=== PATIENT | male | born 1945 | race Hispanic/Latino ===

== ENCOUNTER → 2017-06-13 | Outpatient (CLI) | payer MEDICARE, BC ==
[~2017-06-13] MED LIST: CAVEDILOL PO; COLACE100 M1 PO; DOXAZOSIN MESYLA4 MG PO; GADOBENATE DIMEGLUMINE 1 ML IV ONE; HYDROCODONE/APAP; LOSARTAN/HCTZ PO; NORCO 10MG-325MG1 EA PO; PRAZOSIN
[2017-06-13 11:09] LABS: BLOOD UREA NITROGEN 18 mg/dL (7-26); BUN/CREATININE RATIO 18 (6-25); CREATININE, SERUM 1.02 mg/dL (0.72-1.25); EST GLOMERULAR FILTRATION RATE > 60 ML/MIN (60-)
--- NOTE | 2017-06-13 13:37 | Diagnostic Imaging Report ---
PROCEDURE: MRI ABDOMEN WOW TECHNIQUE: Axial T1 in and out of phase, axial T2, fat-sat, coronal, T2 with and without fat-sat, axial DWI, and ADC MR images of the abdomen were performed, before the intravenous administration of gadolinium contrast. Axial T1, GRE dynamic images in precontrast, arterial, venous and delayed phases, as well as delayed postcontrast ASSETT images were also performed. Subtraction images were obtained. 20 cc of MultiHance was administered. COMPARISON: MRI 02/20/2017 INDICATIONS: Not provided. FINDINGS: LOWER THORAX: Lung bases are grossly clear. LIVER: Normal hepatic size and contour. Diffusely signal loss on [id number] images consistent with steatosis. No focal hepatic lesions. No biliary ductal dilation. BILIARY: No ductal dilatation or filling defect. Gallbladder without filling defects. PANCREAS: No mass or ductal dilatation. SPLEEN: No splenomegaly. ADRENALS: No nodules. KIDNEYS: Symmetrical bilateral renal enhancement. No hydronephrosis or obstruction. Stable postsurgical changes surrounding the kidneys, posterior pararenal spaces, and subcutaneous tissues. Bilateral cystic renal lesions as follows: * Left inferior pole (series 5 image 62) exophytic T1 mildly hyperintense/T2 hyperintense cyst measuring 2.2 x 1.8 cm (previously 1.8 x 1.4 cm). Likely a proteinaceous or hemorrhagic cyst. * Left interpolar region (subtraction series 100 image 173) cystic lesion with mildly thickened septation and septal enhancement measures 1.8 x 1.3 cm (previously 1.7 x 1.4 cm). * Right superior pole (subtraction series 100 image 165) cystic lesion with mildly thickened septation showing septal enhancement measures 1.3 x 1.3 cm (previously 1.4 x 1.3 cm). * Stable multiple bilateral subcentimeter T2 hyperintense, T1 hypointense, nonenhancing lesions, likely simple cysts. PERITONEUM / RETROPERITONEUM: No upper abdominal free fluid. LYMPH NODES: No upper abdominal lymphadenopathy. VESSELS: Celiac trunk, superior and inferior mesenteric, and renal arteries are patent. Portal, superior mesenteric, and splenic veins are patent. Circumaortic left renal vein. BONES AND SOFT TISSUES: No acute bony abnormalities. No suspicious marrow signal abnormalities. Stable T11 and L2 hemangiomas. IMPRESSION: Stable cystic lesions in both kidneys which show septal enhancement and are suspicious for cystic renal cell carcinoma. No new masses. Dictated by: Kenny Kilpatrick M.D. on 06/13/2017 at 13:37 Electronically approved by: Kenny Kilpatrick M.D. on 06/13/2017 at 13:37
== END ==
LOC: MRI 10:04
PROVIDERS: ATTEND Urology
DX: C64.9 Malignant neoplasm of unspecified kidney, except renal pelvis (principal)
CPT/HCPCS: 36415; 74183; 82565; 84520

== ENCOUNTER → 2018-08-19 | Outpatient (CLI) | payer MEDICARE, BC ==
[2018-08-19 09:09] LABS: BLOOD UREA NITROGEN 26 mg/dL (7-26); BUN/CREATININE RATIO 23 (6-25); CREATININE, SERUM 1.11 mg/dL (0.72-1.25); EST GLOMERULAR FILTRATION RATE > 60 ML/MIN (60-)
--- NOTE | 2018-08-19 16:42 | Diagnostic Imaging Report ---
EXAM: MR Abdomen WITHOUT and WITH Contrast INDICATION: Malignant neoplasm of kidney. Follow-up. COMPARISON: MR abdomen dated 06/13/2017. TECHNIQUE: Multiplanar and multisequence imaging was performed of the abdomen without and with contrast. T1-weighted, T2-weighted images, T1-weighted in and [id number], and Diffusion weighted images. Dynamic, post gadolinium T1-weighted spoiled gradient echo scans. IV Contrast: 18 mL of MultiHance gadolinium Oral Contrast: None Medications: None COMPLICATIONS: None FINDINGS: LOWER THORAX: Unremarkable. HEPATOBILIARY: No focal hepatic lesions. No biliary ductal dilation. GALLBLADDER: No radio-opaque stones or sludge. No wall thickening. SPLEEN: No splenomegaly. PANCREAS: No focal masses or ductal dilatation. ADRENALS: No adrenal nodules KIDNEYS/URETERS: Redemonstration of post surgical changes with blooming artifacts around bilateral kidneys and overlying subcutaneous tissues posteriorly. Kidneys enhance symmetrically. No hydronephrosis. No Redemonstration of T2 hyperintense nonenhancing lesions in the bilateral kidneys, the largest in the lower pole of the left kidney measuring 2.9 cm on image 125 series 100, previously 2.4 cm. Slight interval increase in size of the previously described complex lesion in the posterior interpolar region of the left kidney which previously measured 2.0 cm and currently measures 2.2 cm on image 114 series 100. GI TRACT: No abnormal distention, wall thickening, or evidence of bowel obstruction. LYMPH NODES: No lymphadenopathy. VESSELS: Retrosternal left renal vein again observed. PERITONEUM / RETROPERITONEUM: No free air or fluid. BONES: Unremarkable. SOFT TISSUES: Unremarkable. IMPRESSION: Slight interval increase in size of a mildly complex lesion in the posterior interpolar region of the left kidney, otherwise the stent can't change.
== END ==
LOC: MRI 07:48
PROVIDERS: ATTEND Urology
DX: C64.9 Malignant neoplasm of unspecified kidney, except renal pelvis (principal)
CPT/HCPCS: 36415; 74183; 82565; 84520; A9577

== ENCOUNTER → 2019-06-04 | Outpatient (CLI) | payer MEDICARE, BC ==
[~2019-06-04] MED LIST changes: -GADOBENATE DIMEGLUMINE 1 ML IV ONE; +IOPAMIDOL 370 MG/ML 200 ML INFUS..BTL INJ ONE; +SODIUM CHLORIDE 0.9% 500ML 500 ML ONE; +SODIUM CHLORIDE 0.9% 50ML 50 ML ONE
[2019-06-04 10:02] LABS: CREATININE, SERUM 1.22 mg/dL (0.72-1.25)
--- NOTE | 2019-06-04 11:51 | Diagnostic Imaging Report ---
EXAM: CT Abdomen and Pelvis WITH intravenous contrast - renal mass protocol INDICATION: Renal malignancy COMPARISON: None. TECHNIQUE: Abdomen and pelvis were scanned utilizing a multidetector helical scanner from the lung base to the pubic symphysis before and after administration of IV contrast. Coronal and sagittal reformations were obtained. Renal mass protocol was used. Scan was performed prior to contrast administration and during arterial, venous, and delayed phases. IV CONTRAST: 100 mL of Isovue 370 ORAL CONTRAST: Water COMPLICATIONS: None RADIATION DOSE: Total DLP: 1606 mGy*cm Dose modulation, iterative reconstruction, and/or weight based adjustment of the mA/kV was utilized to reduce the radiation dose to as low as reasonably achievable. FINDINGS: LOWER THORAX: Atherosclerotic coronary artery calcifications. HEPATOBILIARY: No focal hepatic lesions. No biliary ductal dilatation. The gallbladder appears unremarkable. SPLEEN: No splenomegaly. Scattered subcentimeter calcified granulomas throughout the spleen. PANCREAS: No focal masses or ductal dilatation. ADRENALS: Diffuse bilateral adrenal thickening without discrete nodule. KIDNEYS/URETERS: Postoperative findings of right and left partial nephrectomy. There is a 2.5 x 2.4 cm ill-defined mass at the posterior midpole of the left kidney. The mass does not demonstrate avid arterial enhancement relative to adjacent renal parenchyma. Left lower pole cysts measure up to 3.2 cm. Scattered cysts throughout the right kidney measure up to 1.4 cm. PELVIC ORGANS/BLADDER: Prostatomegaly to 5.7 cm with indentation of the posterior bladder. PERITONEUM / RETROPERITONEUM: No free air or fluid. LYMPH NODES: No lymphadenopathy. VESSELS: Moderate scattered atherosclerotic calcifications of the nonaneurysmal abdominal aorta and major branches. GI TRACT: Diverticulosis without CT evidence of diverticulitis. No abnormal bowel thickening. No bowel obstruction. Normal appendix. BONES AND SOFT TISSUES: No acute osseous injury. No suspicious lytic or blastic lesions. IMPRESSION: Status post right and left partial nephrectomy. 2.5 x 2.4 cm ill-defined mass at the posterior midpole the left kidney does not demonstrate avid arterial enhancement relative to adjacent renal parenchyma. This may represent a hypoenhancing renal cell carcinoma versus an oncocytoma. Bilateral renal cysts as above. Prostatomegaly. Diverticulosis without CT evidence of diverticulitis. Signed by: Tacos Rosales MD on 06/04/2019 11:47 AM
== END ==
LOC: CT 08:54
PROVIDERS: ATTEND Urology
DX: C64.9 Malignant neoplasm of unspecified kidney, except renal pelvis (principal)
CPT/HCPCS: 36415; 74178; 82565; 84520; 96360; J7040; Q9967

== ENCOUNTER → 2020-05-05 | Outpatient (CLI) | payer MEDICARE, BC ==
[~2020-05-05] MED LIST changes: -IOPAMIDOL 370 MG/ML 200 ML INFUS..BTL INJ ONE; -SODIUM CHLORIDE 0.9% 500ML 500 ML ONE; -SODIUM CHLORIDE 0.9% 50ML 50 ML ONE
== END ==
LOC: US 14:02
PROVIDERS: ATTEND Urology
DX: C64.9 Malignant neoplasm of unspecified kidney, except renal pelvis (principal); N40.1 Benign prostatic hyperplasia with lower urinary tract symptoms; R39.14 Feeling of incomplete bladder emptying; R81 Glycosuria
CPT/HCPCS: 76770

== ENCOUNTER 2020-05-26 08:55 | Inpatient (IN) | payer MEDICARE, BC ==
[2020-05-23 09:26] LABS: BASOPHILS # (AUTO) 0.1 (0.0-0.1); BASOPHILS % 0.9 % (0.0-1.0); EOSINOPHILS # (AUTO) 0.1 (0.0-0.4); EOSINOPHILS % 1.1 % (0.0-6.0); HEMATOCRIT 40.6 % (38.2-49.6); HEMOGLOBIN 13.6 g/dL (14.0-18.0); LYMPHOCYTES # (AUTO) 1.6 (1.0-3.2); LYMPHOCYTES % 17.8 % (18.0-39.1); MEAN CORPUSCULAR HGB CONC 33.5 g/dL (31-35); MEAN CORPUSCULAR VOLUME 83.5 fL (81-99); MONOCYTES # (AUTO) 0.8 (0.2-0.8); MONOCYTES % 8.6 % (4.4-11.3); NEUTROPHILS # (AUTO) 6.2 (2.1-6.9); NEUTROPHILS % 70.9 % (38.7-80.0); PLATELET COUNT 228 x10e3/uL (140-360); RED BLOOD COUNT 4.86 x10e6/uL (4.3-5.7); RED CELL DISTRIBUTION WIDTH 13.6 % (11.7-14.4)
[2020-05-23 10:08] LABS: ANION GAP 13.5 mmol/L (8-16); CALCIUM 9.1 mg/dL (8.4-10.2); CREATININE, SERUM 1.18 mg/dL (0.72-1.25); POTASSIUM 3.5 mmol/L (3.5-5.1)
[~2020-05-26] VITALS: Ht 172.7 cm; Wt 88.0 kg
[~2020-05-26 08:55] MED LIST changes: +ATORVASTATIN CA20 MG PO; +AVODART0.5 MG PO; +CARVEDILOL12.5 MG PO; +EDARBYCLOR 40-1 EAC1 PO; +HYDRALAZINE HCL25 MG PO; +HYDROCHLOROTHIA25 MG PO; +METFORMIN HCL500 MG PO; +OXYBUTYNIN CHLOR5 MG PO
[2020-05-26] MEDS ORDERED: PIPERACILLIN/TAZOBAC 3.375 GM VIAL ONE (10:24)
[2020-05-26] MEDS ORDERED: SODIUM CHLORIDE 0.45% 1,000 ML ONE (10:24)
[2020-05-26] MEDS ORDERED: SODIUM CHLORIDE 0.9% 50ML 50 ML ONE (10:24)
[2020-05-26] MEDS ORDERED: GENTAMICIN 80MG/NS 100 ML 200 ML IV ONE (10:25)
[2020-05-26] MEDS ORDERED: B&O 60MG R/S 60 MG SUPP PR ONE (12:18)
[2020-05-26] MEDS ORDERED: IOPAMIDOL 300MG/ML 50ML INFUS..BTL IV ONE (12:18)
[2020-05-26] MEDS ORDERED: SEVOFLURANE INHAL SOLN 250 ML PEN BTL ONE (13:32)
[2020-05-26] MEDS ORDERED: ETOMIDATE 2 MG/ML 10 ML INJ IV ONE (13:32)
[2020-05-26] MEDS ORDERED: DIPHENHYDRAMINE HCL 25 MG CAP PO PRN (14:15)
[2020-05-26] MEDS ORDERED: B&O 60MG R/S 60 MG SUPP PR PRN (14:15)
[2020-05-26] MEDS ORDERED: CEFTRIAXONE SOD 1 GM/50 ML BAG IV SCH (14:15)
[2020-05-26] MEDS ORDERED: ONDANSETRON HCL INJ 2MG/ML 2ML 2 MG/ML VIAL IV PRN (14:15)
[2020-05-26] MEDS ORDERED: FENTANYL CITRATE/PF 100MCG/2 ML INJ ONE (14:38)
[2020-05-26 15:11] LABS: BASOPHILS # (AUTO) 0.1 (0.0-0.1); BASOPHILS % 0.6 % (0.0-1.0); EOSINOPHILS # (AUTO) 0.1 (0.0-0.4); EOSINOPHILS % 0.6 % (0.0-6.0); HEMATOCRIT 41.6 % (38.2-49.6); LYMPHOCYTES # (AUTO) 1.4 (1.0-3.2); MEAN CORPUSCULAR HEMOGLOBIN 28.1 pg (28-32); MEAN CORPUSCULAR HGB CONC 33.7 g/dL (31-35); MEAN CORPUSCULAR VOLUME 83.4 fL (81-99); MONOCYTES # (AUTO) 0.6 (0.2-0.8); MONOCYTES % 7.2 % (4.4-11.3); NEUTROPHILS # (AUTO) 5.8 (2.1-6.9); PLATELET COUNT 203 x10e3/uL (140-360); RED BLOOD COUNT 4.99 x10e6/uL (4.3-5.7); RED CELL DISTRIBUTION WIDTH 13.7 % (11.7-14.4)
[2020-05-26 15:42] LABS: ANION GAP 16.4 mmol/L (8-16); CALCIUM 8.8 mg/dL (8.4-10.2); CREATININE, SERUM 1.25 mg/dL (0.72-1.25); POTASSIUM 3.4 mmol/L (3.5-5.1)
[2020-05-26 16:06] VITALS: BP 166/77
[2020-05-26 16:12] VITALS: BP 166/77
[2020-05-26 16:34] VITALS: BP 166/77
[2020-05-26] MEDS: SODIUM CHLORIDE 0.9% 1000ML 1,000 ML IV SCH (16:34)
[2020-05-26] MEDS: CEFTRIAXONE SOD 1 GM in SODIUM CHLORIDE 0.9% 50ML 50 ML IV SCH (17:47)
[2020-05-26] MEDS: DOCUSATE SODIUM 100 MG CAP PO SCH (17:47)
[2020-05-26 20:00] VITALS: BP 168/73
[2020-05-26] MEDS: ATORVASTATIN 40 MG TAB PO SCH (21:00)
[2020-05-26] MEDS: HYDRALAZINE HCL 25 MG TAB PO SCH (21:00)
[2020-05-27] VITALS (7 sets, daily range): BP systolic 142–156; BP diastolic 70–83
[2020-05-27] MEDS: SODIUM CHLORIDE 0.9% 1000ML 1,000 ML IV SCH (05:30)
[2020-05-27 06:56] LABS: BASOPHILS # (AUTO) 0.1 (0.0-0.1); BASOPHILS % 0.6 % (0.0-1.0); EOSINOPHILS # (AUTO) 0.1 (0.0-0.4); EOSINOPHILS % 1.1 % (0.0-6.0); HEMATOCRIT 41.3 % (38.2-49.6); HEMOGLOBIN 13.9 g/dL (14.0-18.0); LYMPHOCYTES # (AUTO) 1.2 (1.0-3.2); LYMPHOCYTES % 11.4 % (18.0-39.1); MEAN CORPUSCULAR HEMOGLOBIN 28.4 pg (28-32); MEAN CORPUSCULAR HGB CONC 33.7 g/dL (31-35); MEAN CORPUSCULAR VOLUME 84.5 fL (81-99); NEUTROPHILS % 76.5 % (38.7-80.0); PLATELET COUNT 214 x10e3/uL (140-360); RED BLOOD COUNT 4.89 x10e6/uL (4.3-5.7); RED CELL DISTRIBUTION WIDTH 13.7 % (11.7-14.4)
[2020-05-27 07:22] LABS: ALBUMIN 3.2 g/dL (3.5-5.0); ALBUMIN/GLOBULIN RATIO 0.9 (0.8-2.0); ANION GAP 16.9 mmol/L (8-16); CALCIUM 8.6 mg/dL (8.4-10.2); CREATININE, SERUM 1.19 mg/dL (0.72-1.25)
[2020-05-27 07:23] LABS: POTASSIUM 2.9 mmol/L (3.5-5.1)
[2020-05-27] MEDS ORDERED: POTASSIUM CHLORIDE 20 MEQ TAB CR PO SCH (08:27)
[2020-05-27] MEDS: DOCUSATE SODIUM 100 MG CAP PO SCH ×2 (09:03→16:38)
[2020-05-27] MEDS: HYDRALAZINE HCL 25 MG TAB PO SCH ×3 (09:04→20:31)
[2020-05-27] MEDS: CARVEDILOL 12.5 MG TAB PO SCH ×2 (10:06→16:38)
[2020-05-27] MEDS: SOD CHL 0.45%/POT CHL 20MEQ 1,000 ML IV SCH ×2 (10:06→22:56)
[2020-05-27] MEDS ORDERED: POTASSIUM CHLORIDE 20 MEQ TAB CR PO NR (15:00)
[2020-05-27] MEDS: CEFTRIAXONE SOD 1 GM in SODIUM CHLORIDE 0.9% 50ML 50 ML IV SCH (16:38)
[2020-05-27] MEDS: ATORVASTATIN 40 MG TAB PO SCH (20:04)
[2020-05-28] VITALS (7 sets, daily range): BP systolic 134–168; BP diastolic 74–87
[2020-05-28 06:27] LABS: BASOPHILS # (AUTO) 0.1 (0.0-0.1); BASOPHILS % 0.6 % (0.0-1.0); EOSINOPHILS # (AUTO) 0.2 (0.0-0.4); EOSINOPHILS % 1.9 % (0.0-6.0); HEMATOCRIT 41.1 % (38.2-49.6); HEMOGLOBIN 14.1 g/dL (14.0-18.0); LYMPHOCYTES # (AUTO) 1.2 (1.0-3.2); LYMPHOCYTES % 10.7 % (18.0-39.1); MEAN CORPUSCULAR HEMOGLOBIN 28.3 pg (28-32); MEAN CORPUSCULAR HGB CONC 34.3 g/dL (31-35); MEAN CORPUSCULAR VOLUME 82.5 fL (81-99); MONOCYTES # (AUTO) 1.1 (0.2-0.8); MONOCYTES % 10.2 % (4.4-11.3); NEUTROPHILS # (AUTO) 8.3 (2.1-6.9); PLATELET COUNT 220 x10e3/uL (140-360); RED BLOOD COUNT 4.98 x10e6/uL (4.3-5.7); RED CELL DISTRIBUTION WIDTH 13.7 % (11.7-14.4)
[2020-05-28 07:00] LABS: ANION GAP 12.2 mmol/L (8-16); BLOOD UREA NITROGEN 18 mg/dL (7-26); BUN/CREATININE RATIO 18 (6-25); CALCIUM 8.5 mg/dL (8.4-10.2); CARBON DIOXIDE 25 mmol/L (22-29); CHLORIDE 100 mmol/L (98-107); CREATININE, SERUM 0.99 mg/dL (0.72-1.25); EST GLOMERULAR FILTRATION RATE > 60 ML/MIN (60-); GLUCOSE 155 mg/dL (74-118); POTASSIUM 3.2 mmol/L (3.5-5.1); SODIUM 134 mmol/L (136-145)
[2020-05-28] MEDS: DOCUSATE SODIUM 100 MG CAP PO SCH ×2 (08:36→16:17)
[2020-05-28] MEDS: HYDRALAZINE HCL 25 MG TAB PO SCH ×3 (08:36→22:20)
[2020-05-28] MEDS: CARVEDILOL 12.5 MG TAB PO SCH ×2 (08:36→16:42)
[2020-05-28] MEDS ORDERED: POTASSIUM CHLORIDE 20 MEQ TAB CR PO NR (11:00)
[2020-05-28] MEDS: SOD CHL 0.45%/POT CHL 20MEQ 1,000 ML IV SCH (15:55)
[2020-05-28] MEDS: CEFTRIAXONE SOD 1 GM in SODIUM CHLORIDE 0.9% 50ML 50 ML IV SCH (17:34)
[2020-05-28] MEDS: ATORVASTATIN 40 MG TAB PO SCH (22:20)
[2020-05-29] VITALS (8 sets, daily range): BP systolic 145–174; BP diastolic 75–87
[2020-05-29 05:30] LABS: BASOPHILS # (AUTO) 0.1 (0.0-0.1); BASOPHILS % 0.5 % (0.0-1.0); EOSINOPHILS # (AUTO) 0.3 (0.0-0.4); HEMATOCRIT 40.9 % (38.2-49.6); HEMOGLOBIN 14.1 g/dL (14.0-18.0); LYMPHOCYTES # (AUTO) 1.2 (1.0-3.2); LYMPHOCYTES % 11.2 % (18.0-39.1); MEAN CORPUSCULAR HEMOGLOBIN 28.8 pg (28-32); MEAN CORPUSCULAR HGB CONC 34.5 g/dL (31-35); MEAN CORPUSCULAR VOLUME 83.6 fL (81-99); MONOCYTES # (AUTO) 1.1 (0.2-0.8); NEUTROPHILS # (AUTO) 8.2 (2.1-6.9); NEUTROPHILS % 74.6 % (38.7-80.0); PLATELET COUNT 222 x10e3/uL (140-360); RED BLOOD COUNT 4.89 x10e6/uL (4.3-5.7); RED CELL DISTRIBUTION WIDTH 13.9 % (11.7-14.4)
[2020-05-29 05:47] LABS: ANION GAP 13.4 mmol/L (8-16); BLOOD UREA NITROGEN 21 mg/dL (7-26); BUN/CREATININE RATIO 20 (6-25); CALCIUM 8.3 mg/dL (8.4-10.2); CARBON DIOXIDE 26 mmol/L (22-29); CHLORIDE 99 mmol/L (98-107); CREATININE, SERUM 1.07 mg/dL (0.72-1.25); EST GLOMERULAR FILTRATION RATE > 60 ML/MIN (60-); GLUCOSE 153 mg/dL (74-118); POTASSIUM 3.4 mmol/L (3.5-5.1); SODIUM 135 mmol/L (136-145)
[2020-05-29] MEDS: SOD CHL 0.45%/POT CHL 20MEQ 1,000 ML IV SCH ×2 (06:10→15:05)
[2020-05-29] MEDS: HYDRALAZINE HCL 25 MG TAB PO SCH ×3 (09:00→21:30)
[2020-05-29] MEDS: DOCUSATE SODIUM 100 MG CAP PO SCH ×2 (09:00→21:30)
[2020-05-29] MEDS: CARVEDILOL 12.5 MG TAB PO SCH ×2 (09:39→22:05)
[2020-05-29] MEDS ORDERED: ONDANSETRON HCL 4 MG ORAL DISINTEGRATING TAB PO PRN (10:00)
[2020-05-29] MEDS: PHENAZOPYRIDINE HCL 100 MG TAB PO PRN ×2 (16:19→22:06)
[2020-05-29] MEDS: CEFTRIAXONE SOD 1 GM in SODIUM CHLORIDE 0.9% 50ML 50 ML IV SCH (18:01)
[2020-05-29] MEDS: TRAMADOL HCL 50 MG TAB PO PRN (21:30)
[2020-05-29] MEDS: ATORVASTATIN 40 MG TAB PO SCH (22:06)
[2020-05-30] VITALS (7 sets, daily range): BP systolic 160–188; BP diastolic 78–94
[2020-05-30 05:51] LABS: BASOPHILS # (AUTO) 0.1 (0.0-0.1); BASOPHILS % 0.8 % (0.0-1.0); EOSINOPHILS # (AUTO) 0.4 (0.0-0.4); EOSINOPHILS % 3.7 % (0.0-6.0); HEMATOCRIT 39.5 % (38.2-49.6); HEMOGLOBIN 13.8 g/dL (14.0-18.0); LYMPHOCYTES # (AUTO) 1.6 (1.0-3.2); LYMPHOCYTES % 16.9 % (18.0-39.1); MEAN CORPUSCULAR HEMOGLOBIN 29.7 pg (28-32); MEAN CORPUSCULAR HGB CONC 34.9 g/dL (31-35); MEAN CORPUSCULAR VOLUME 85.1 fL (81-99); MONOCYTES # (AUTO) 1.2 (0.2-0.8); MONOCYTES % 12.6 % (4.4-11.3); NEUTROPHILS # (AUTO) 6.2 (2.1-6.9); NEUTROPHILS % 65.4 % (38.7-80.0); PLATELET COUNT 214 x10e3/uL (140-360); RED BLOOD COUNT 4.64 x10e6/uL (4.3-5.7); RED CELL DISTRIBUTION WIDTH 14.3 % (11.7-14.4)
[2020-05-30 06:26] LABS: ANION GAP 12.4 mmol/L (8-16); BLOOD UREA NITROGEN 19 mg/dL (7-26); BUN/CREATININE RATIO 18 (6-25); CALCIUM 8.2 mg/dL (8.4-10.2); CARBON DIOXIDE 26 mmol/L (22-29); CHLORIDE 99 mmol/L (98-107); CREATININE, SERUM 1.03 mg/dL (0.72-1.25); EST GLOMERULAR FILTRATION RATE > 60 ML/MIN (60-); GLUCOSE 149 mg/dL (74-118); POTASSIUM 3.4 mmol/L (3.5-5.1); SODIUM 134 mmol/L (136-145)
[2020-05-30] MEDS: SOD CHL 0.45%/POT CHL 20MEQ 1,000 ML IV SCH ×2 (06:46→18:10)
[2020-05-30] MEDS: DOCUSATE SODIUM 100 MG CAP PO SCH (09:16)
[2020-05-30] MEDS: HYDRALAZINE HCL 25 MG TAB PO SCH ×2 (09:16→16:19)
[2020-05-30] MEDS: CARVEDILOL 12.5 MG TAB PO SCH (09:17)
[2020-05-30] MEDS: PHENAZOPYRIDINE HCL 100 MG TAB PO PRN ×2 (13:33→19:39)
[2020-05-30] MEDS: TRAMADOL HCL 50 MG TAB PO PRN ×2 (13:34→19:39)
[2020-05-30] MEDS: CEFTRIAXONE SOD 1 GM in SODIUM CHLORIDE 0.9% 50ML 50 ML IV SCH (18:18)
== END 2020-05-30 19:57 | disposition home or self-care (01) | DRG 713 ==
LOC: OR 08:55 → PACU V 14:15 → MED/SURG 15:16
PROVIDERS: ADMIT Family Medicine; ATTEND Family Medicine
PROC: 0VB08ZX Excision of Prostate, Via Natural or Artificial Opening Endoscopic, Diagnostic (ICD-10-PCS; 2020-05-26)
PROC: BT141ZZ Fluoroscopy of Kidneys, Ureters and Bladder using Low Osmolar Contrast (ICD-10-PCS; 2020-05-26)
PROC: BV49ZZZ Ultrasonography of Prostate and Seminal Vesicles (ICD-10-PCS; principal; 2020-05-26 12:00)
PROC: 0V508ZZ Destruction of Prostate, Via Natural or Artificial Opening Endoscopic (ICD-10-PCS; 2020-05-26 12:00)
DX: N40.1 Benign prostatic hyperplasia with lower urinary tract symptoms (principal); N13.8 Other obstructive and reflux uropathy; R39.14 Feeling of incomplete bladder emptying; I10 Essential (primary) hypertension; E11.9 Type 2 diabetes mellitus without complications; I25.10 Atherosclerotic heart disease of native coronary artery without angina pectoris; I35.0 Nonrheumatic aortic (valve) stenosis; Z79.84 Long term (current) use of oral hypoglycemic drugs; Z83.3 Family history of diabetes mellitus; Z82.49 Family history of ischemic heart disease and other diseases of the circulatory system; E78.5 Hyperlipidemia, unspecified; Z85.528 Personal history of other malignant neoplasm of kidney; Z90.5 Acquired absence of kidney; E66.9 Obesity, unspecified; Z68.29 Body mass index [BMI] 29.0-29.9, adult; Z20.822 Contact with and (suspected) exposure to COVID-19
CPT/HCPCS: 36415; 51700; 71046; 74420; 76872; 76998; 80048; 80053; 82948; 83735; 85025; 88305; 93005; 96360; 96361; C1758; J0696; J1580; J2543; J3010; J7030; U0002

== ENCOUNTER → 2022-01-30 | Outpatient (CLI) | payer MEDICARE, BC | LOC: US 10:13 | PROVIDERS: ATTEND Urology | DX: C64.1 Malignant neoplasm of right kidney, except renal pelvis (principal) | CPT/HCPCS: 76770 ==

== ENCOUNTER → 2023-03-04 | Outpatient (REF) | payer MEDICARE, BC | LOC: US 11:34 | PROVIDERS: ATTEND Urology | DX: N28.1 Cyst of kidney, acquired (principal) | CPT/HCPCS: 76770 ==

== ENCOUNTER → 2024-02-18 | Outpatient (REF) | payer MEDICARE, BC | LOC: US 12:57 | PROVIDERS: ATTEND Urology | DX: N18.9 Chronic kidney disease, unspecified (principal); N28.1 Cyst of kidney, acquired | CPT/HCPCS: 76770; 76857 ==

== ENCOUNTER → 2025-01-20 | Outpatient (REF) | payer MEDICARE, BC | LOC: US 14:30 | PROVIDERS: ATTEND Urology | DX: N28.1 Cyst of kidney, acquired (principal) | CPT/HCPCS: 76770; 76857 ==